=== PATIENT | male | born 1975 | race Caucasian/White ===

== ENCOUNTER 2016-10-03 15:45 | Emergency (ER) | payer OTHER ==
[2016-10-03 18:18] LABS: HEMATOCRIT 43.9 % (40.0-51.0); HEMOGLOBIN 15.2 g/dL (13.7-17.5); MEAN CELL HEMOGLOBIN CONCENTR. 34.6 g/dL (32.4-36.7); MEAN CELL VOLUME 86.8 fL (81.5-99.8); MEAN PLATELET VOLUME 9.5 fL (8.7-11.7); PLATELET COUNT 237 10^3/uL (150-400); RED BLOOD CELL COUNT 5.06 10^6/uL (4.40-6.38)
[2016-10-03 18:19] LABS: ADD MORPH? NO; ADD SCAN? YES; ATYPICAL LYMPHOCYTE FLAG 290 (0-99); FRAGMENT RBC FLAG 10 (0-99); LEFT SHIFT FLG 0 (0-99); LIPEMIA HEMOLYSIS FLAG 90 (0-99); PLATELET CLUMPS FLAG 10 (0-99)
[2016-10-03 18:32] LABS: ALANINE AMINOTRANSFERASE 72 IU/L (21-72); ALBUMIN 4.2 g/dL (3.5-5.0); ALKALINE PHOSPHATASE 113 IU/L (38-126); ANION GAP 12 mEq/L (8-16); ASPARTATE AMINOTRANSFERASE 60 IU/L (17-59); BILIRUBIN,TOTAL 2.4 mg/dL (0.1-1.4); BILIRUBIN-CONJUGATED 0.3 mg/dL (0.0-0.5); BILIRUBIN-UNCONJUGATED 2.1 mg/dL (0.0-1.1); CALCIUM 9.5 mg/dL (8.5-10.4); CARBON DIOXIDE 25 mEq/l (22-31); CHLORIDE 105 mEq/L (97-110); CREATININE 1.1 mg/dL (0.7-1.3); GLOMERULAR FILTRATION RATE > 60; GLUCOSE 88 mg/dL (70-100); SODIUM 142 mEq/L (134-144); TOTAL PROTEIN 7.7 g/dL (6.3-8.2)
[2016-10-03 18:36] LABS: COLOR AMBER; LEUKOCYTE ESTERASE,URINE NEGATIVE (NEGATIVE); NITRITE,URINE NEGATIVE (NEGATIVE)
[2016-10-03 18:51] VITALS: RESP 16; O2SAT 97
[2016-10-03 18:53] LABS: SCAN POSITIVE
--- NOTE | 2016-10-03 18:53 | EDPHY ---
H & P Time Seen by Provider: 10/03/16 17:45 HPI/ROS: CHIEF COMPLAINT: Persistent fever HISTORY OF PRESENT ILLNESS: Patient presents with intermittent fevers since last Thursday. He had a massage for some neck pain which he attributes to lifting his [id number] 3-1/2-year-old 2 weeks ago. Last developed a little bit of a headache and then over the weekend felt subjectively hot. On Thursday he had a fever up to 101 degrees. He has fevers have persisted intermittently until today when he had 100.4 at home at 2:00 p.m.. Symptoms seem to get better with ibuprofen within reoccur. The currently does not have a headache or neck pain. He has not been out of [place] since last . His last dental work was 2 months ago. He has a dog but no other animals. No out of state tick bites. Did have mosquito exposure [place] but has lived here for 10 years. REVIEW OF SYSTEMS: Eye: no change in vision, did have photophobia with this headache but none now. ENT: no sore throat Cardiac: no chest pain or syncope Pulmonary: no cough or SOB Abdomen: no vomiting, diarrhea, abdominal pain Musculoskeletal: no back pain or neck pain now Skin: no rash Neuro: HPI, no headache currently Constitutional: HPI : no urinary symptoms A comprehensive 10 point review of systems is otherwise negative aside from elements mentioned in the history of present illness. PAST MEDICAL HISTORY: Negative Social history: Negative, no foreign travel or IV drug abuse. General Appearance: Alert and conversant, cooperative. Eyes: No scleral icterus. Extraocular motion intact. Pupils equal and reactive. ENT, Mouth: Normal mucous membranes. No gum swelling. No trismus. No angioedema. Respiratory: Normal respiratory effort, breath sounds equal, lungs are clear to auscultation. Cardiovascular: Regular rate and rhythm. No cardiac murmur auscultated. Gastrointestinal: Abdomen is soft and non tender. Neurological: Alert and oriented x3. Normally conversant. Face symmetric, normal movement and sensation in all extremities. Skin: Warm and dry, no rashes. Musculoskeletal: No peripheral edema and no joint swelling. Neck has normal range of motion without meningeal signs. Psychiatric: Not agitated. Emergency Department course/MDM: Plan chest x-ray is normal, urine is normal. CBC chemistries and LFTs, will discuss with infectious disease. Discussed with ID physician men's furnishings salesperson Dr. Espinoza at 1943. He requested that I add on the following tests: West Nile, Blood cultures, CMV Igm and IgG, EBV antibody profile, will f/u in the office early next week. Recommended discharge with no further diagnostics or therapy at this time. Clinically I think the patient is unlikely to have meningitis or other serious bacterial illness. Smoking Status: Never smoked Constitutional: Initial Vital Signs Temperature (C) 37.3 C 10/03/16 16:09 Heart Rate 88 10/03/16 16:09 Respiratory Rate 18 10/03/16 16:09 Blood Pressure 126/79 H 10/03/16 16:09 O2 Sat (%) 96 10/03/16 16:09 O2 Delivery Mode Room Air Allergies/Adverse Reactions: No Known Allergies Allergy (Verified 10/03/16 16:09) Home Medications: Medication Instructions Recorded NK [No Known Home Meds] 10/03/16 Medical Decision Making - Diagnostics Imaging Results: Imaging Impressions Chest X-Ray 10/03/16 18:04 Impression: Excellent inspiration. Differential Diagnosis: Differential considered including but not limited to West Nile, meningitis, pneumonia, UTI, endocarditis, sepsis, other viral or bacterial syndrome. - Data Points Laboratory Results: Laboratory Results 10/03/16 17:50 10/03/16 17:50 10/03/16 10/03/16 10/03/16 18:35 18:30 17:50 WBC RBC Hgb Hct MCV MCH MCHC RDW Plt Count MPV Neut % (Auto) Lymph % (Auto) [place] % (Auto) Eos % (Auto) Baso % (Auto) Nucleat RBC Rel Count Absolute Neuts (auto) Absolute Lymphs (auto) Absolute Monos (auto) Absolute Eos (auto) Absolute Basos (auto) Absolute Nucleated RBC Immature Gran % Seg Neutrophils % Lymphocytes % Monocytes % Basophils % Immature Gran # Absolute Seg Neuts Absolute Lymphocytes Absolute Monocytes Absolute Basophils Atypical Lymphocytes Platelet Estimate Microcytic Cells Smear Review By Sodium 142 mEq/L mEq/L (134-144) Potassium 4.0 mEq/L mEq/L (3.5-5.2) Chloride 105 mEq/L mEq/L (97-110) Carbon Dioxide 25 mEq/l mEq/l (22-31) Anion Gap 12 mEq/L mEq/L (8-16) BUN 9 mg/dL mg/dL (7-23) Creatinine 1.1 mg/dL mg/dL (0.7-1.3) Estimated GFR > 60 Glucose 88 mg/dL mg/dL (70-100) Calcium 9.5 mg/dL mg/dL (8.5-10.4) Total Bilirubin 2.4 mg/dL H mg/dL (0.1-1.4) Conjugated Bilirubin 0.3 mg/dL mg/dL (0.0-0.5) Unconjugated Bilirubin 2.1 mg/dL H mg/dL (0.0-1.1) AST 60 IU/L H IU/L (17-59) ALT 72 IU/L IU/L (21-72) Alkaline Phosphatase 113 IU/L IU/L (38-126) Total Protein 7.7 g/dL g/dL (6.3-8.2) Albumin 4.2 g/dL g/dL (3.5-5.0) Urine Color POLY Urine Appearance CLEAR Urine pH 5.0 (5.0-7.5) Ur Specific [place] 1.013 (1.002-1.030) Urine Protein NEGATIVE (NEGATIVE) Urine Ketones TRACE H (NEGATIVE) Urine Blood NEGATIVE (NEGATIVE) Urine Nitrate NEGATIVE (NEGATIVE) Urine Bilirubin NEGATIVE (NEGATIVE) Urine Urobilinogen NEGATIVE EU EU (0.2-1.0) Ur Leukocyte Esterase NEGATIVE (NEGATIVE) Urine Glucose NEGATIVE (NEGATIVE) CMV IgG Ab Pending CMV IgM Ab Pending West Nile Virus IgG Ab Pending West Nile Virus IgM Ab Pending West Nile Interp Pending EBV Capsid Ag IgG Ab Pending EBV Capsid Ag IgM Ab Pending EBV Nuclear Antigen Ab Pending EBV Interpretation Pending 10/03/16 17:50 WBC 9.26 10^3/uL 10^3/uL (3.80-9.50) RBC 5.06 10^6/uL 10^6/uL (4.40-6.38) Hgb 15.2 g/dL g/dL (13.7-17.5) Hct 43.9 % % (40.0-51.0) MCV 86.8 fL fL (81.5-99.8) MCH 30.0 pg pg (27.9-34.1) MCHC 34.6 g/dL g/dL (32.4-36.7) RDW 13.0 % % (11.5-15.2) Plt Count 237 10^3/uL 10^3/uL (150-400) MPV 9.5 fL fL (8.7-11.7) Neut % (Auto) [employer] Lymph % (Auto) [employer] [place] % (Auto) [employer] Eos % (Auto) [employer] Baso % (Auto) [employer] Nucleat RBC Rel Count 0.0 % % (0.0-0.2) Absolute Neuts (auto) [employer] Absolute Lymphs (auto) [employer] Absolute Monos (auto) [employer] Absolute Eos (auto) [employer] Absolute Basos (auto) [employer] Absolute Nucleated RBC 0.00 10^3/uL 10^3/uL (0-0.01) Immature Gran % [employer] Seg Neutrophils % 49 % % Lymphocytes % 40 % % Monocytes % 10 % % Basophils % 1 % % Immature Gran # [employer] Absolute Seg Neuts 4.54 10^/uL 10^/uL (1.70-6.50) Absolute Lymphocytes 3.70 10^3/uL H 10^3/uL (1.00-3.00) Absolute Monocytes 0.93 10^3/uL H 10^3/uL (0.30-0.80) Absolute Basophils 0.09 10^3/uL 10^3/uL (0.02-0.10) Atypical Lymphocytes 2+ H Platelet Estimate ADEQUATE (ADEQ) Microcytic Cells 1+ H Smear Review By Pending Sodium Potassium Chloride Carbon Dioxide Anion Gap BUN Creatinine Estimated GFR Glucose Calcium Total Bilirubin Conjugated Bilirubin Unconjugated Bilirubin AST ALT Alkaline Phosphatase Total Protein Albumin Urine Color Urine Appearance Urine pH Ur Specific [place] Urine Protein Urine Ketones Urine Blood Urine Nitrate Urine Bilirubin Urine Urobilinogen Ur Leukocyte Esterase Urine Glucose CMV IgG Ab CMV IgM Ab West Nile Virus IgG Ab West Nile Virus IgM Ab West [place] Interp EBV Capsid Ag IgG Ab EBV Capsid Ag IgM Ab EBV Nuclear Antigen Ab EBV Interpretation Departure - Departure Disposition: Home, Routine, Self-Care Clinical Impression: Fever Qualifiers: Fever type: unspecified Qualified Code(s): R50.9 - Fever, unspecified Condition: Good Instructions: Fever in Adults (ED) Referrals: Hang Espinoza MD [Medical Doctor] - 10/07/16
[2016-10-03 18:54] LABS: ADD DIFF? YES
[2016-10-03 19:01] LABS: MICROCYTES 1+; PLATELET ESTIMATE ADEQUATE (ADEQ)
[2016-10-03 20:19] VITALS: BP 117/72; PULSE 91; TEMP 98.6
[2016-10-06 08:08] LABS: ANTI EBNA Positive (Negative); ANTI VCA/IgG Positive (Negative); ANTI VCA/IgM Positive (Negative)
[2016-10-06 15:28] LABS: INTERPRETATION See Comments; WEST NILE VIRUS IGG Negative (Negative); WEST NILE VIRUS IGM Negative (Negative)
== END 2016-10-03 20:19 | disposition home or self-care (01) ==
DX: R50.9 Fever, unspecified (principal)
CPT/HCPCS: 86644-90; 86645-90; 86664-90; 86665-90

== ENCOUNTER → 2017-01-26 | Outpatient (CLI) | payer OTHER | LOC: FIMAGING 12:24 | PROVIDERS: ATTEND Orthopaedic Surgery Orthopaedic Surgery of the Spine | DX: M46.96 Unspecified inflammatory spondylopathy, lumbar region (principal); M46.97 Unspecified inflammatory spondylopathy, lumbosacral region ==